=== PATIENT | female | born 1975 | race Caucasian/White ===

== ENCOUNTER 2024-10-02 14:34 | Emergency (ER) | payer MEDICAID ==
[~2024-10-02] VITALS: Ht 167.6 cm; Wt 69.0 kg
[2024-10-02 14:37] VITALS: BP 141/92; PULSE 107; RESP 18; TEMP 36.7; O2SAT 100
[2024-10-02] MEDS ORDERED: IBUPROFEN 600MG TABLET PO ONE (15:15)
[2024-10-02] MEDS ORDERED: IBUP-2029 MT (16:39)
[2024-10-02] MEDS ORDERED: LIDO700A30 TP (16:39)
== END 2024-10-02 19:17 | disposition left against medical advice (07) ==
LOC: ER 14:34
DX: M50.322 Other cervical disc degeneration at C5-C6 level (principal); M54.50 Low back pain, unspecified; V43.52XA Car driver injured in collision with other type car in traffic accident, initial encounter; Y93.89 Activity, other specified; Y92.89 Other specified places as the place of occurrence of the external cause; Y99.8 Other external cause status
CPT/HCPCS: 72040; 72100; 81025; 99284